=== PATIENT | male | born 1980 | race Two or more races ===

== ENCOUNTER 2023-10-01 16:58 | Emergency (ER) | payer SELFPAY ==
[~2023-10-01] VITALS: Ht 185.4 cm; Wt 86.3 kg
[2023-10-01 17:02] VITALS: BP 150/91; PULSE 94; RESP 14; O2SAT 96
== END 2023-10-01 21:09 | disposition left against medical advice (07) ==
LOC: EDBD 16:58 → ER 16:58
DX: R05.9 Cough, unspecified (principal); R09.81 Nasal congestion; R51.9 Headache, unspecified; Z53.21 Procedure and treatment not carried out due to patient leaving prior to being seen by health care provider